=== PATIENT | female | born 1980 | race Caucasian/White ===

== ENCOUNTER → 2020-11-06 16:20 | Outpatient (BNVA) | payer OTHER, SELFPAY | PROVIDERS: Visit Provider Internal Medicine Cardiovascular Disease | DX: R07.2 Precordial pain (principal) | CPT/HCPCS: 87635; 99211 ==

== ENCOUNTER → 2020-11-07 11:06 | Outpatient (BNVA) | payer OTHER, SELFPAY | PROVIDERS: Visit Provider Internal Medicine Cardiovascular Disease | DX: Z20.822 Contact with and (suspected) exposure to COVID-19 (principal) | CPT/HCPCS: 87635 ==

== ENCOUNTER 2020-11-12 07:05 | Day surgery (SDC) | payer OTHER, SELFPAY ==
[2020-11-12] VITALS (14 sets, daily range): BP systolic 105–137; BP diastolic 61–85; PULSE 59–66; RESP 17–18; TEMP 36.8; O2SAT 96–98; BMI 30.5
--- NOTE | 2020-11-12 07:30 | XACV_ITS ---
Ht: 170 cm Wt: 88 kg BSA: 2.07 m2 Gender: Female : 1980 Any Known Allergies: Other Exam Priority: Routine Procedure(s): Procedure Description: Diagnostic procedure Procedure Description: Left Heart Catheterization Procedure Description: Coronary Angiography Diagnostic Cath Status: Elective Diagnostic Findings * No disease noted in the Left Main, Left Anterior Descending, Right, or Circumflex coronary arteries. * Coronary angiography shows right dominance. Conclusions 1. No disease noted in the Left Main, Left Anterior Descending, Right, or Circumflex coronary arteries. 2. All jeter are normal. 3. Normal left ventricular systolic function. Ejection fraction of 65%. Recommendations * Continue current medical management and risk factor modification. LV EDP: 19 mmHg Ventriculography Ejection Fraction: 65.0 % Left Ventriculography Findings: * Normal left ventricular ejection fraction 60%. Pressures Phase:Rest AO : 100 / 70 ( 84 ) @ 8:52:00 AM 152 / 75 ( 67 ) @ 8:53:00 AM 156 / 67 ( 101 ) @ 8:53:00 AM 132 / 82 ( 103 ) @ 8:59:00 AM 132 / 36 ( 74 ) @ 8:59:00 AM LV : 132 / 0 / 19 @ 8:58:00 AM 194 / 57 / 100 @ 8:59:00 AM 130 / -1 / 21 @ 8:59:00 AM 131 / -1 / 20 @ 8:59:00 AM Valves Phase:DefaultPhase AV : 0.0 @ 10:06:33 AM AV Mean Gradient: 0.0 @ 10:06:33 AM Clinical Evaluation EBL: 5mL-10mL Procedural Details Procedure Consent Obtained. Pre-Procedure Time Out. Identified patient by full name and date of as verbalized by the patient/guarantor. Does the consent match the physician's order: Yes. Accurate & Complete Informed Consent: Yes. Inpatient/Outpatient History & Physical on Chart: Yes. If H&P is completed, is and addenduem needed: No; If yes, is the addendum complete: N/A. Visualize and Verify Site with Patient/Guarantor: N/A. Relevant Radiology Images available: N/A. Pre-op teaching completed and patient verbalized understanding. The risks, benefits, and alternatives of sedation and/or procedure were discussed by physician. The patient agrees to continue. Procedure started. 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 Chest Pain Symptom Assessment: Typical Angina Symptoms. Cardiovascular Instability: N/A, if yes, Persistant Ischemic Symptoms. Correct patient, site and procedure confirmed by cath team. Current diagnosis: Stable angina; Abnormal stress test. PERRLA. Strong, equal hand service team leader bilaterally. Lungs clear x 5 lobes. IV Site on Arrival: 20 gauge in the right anticubital. IV Fluids: 0.9% NaCl at KVO. 0 mL infused prior to laborer rags. Pre Procedural Pulses: bilateral radial was 3+. Pre Procedural Pulses: bilateral dorsalis pedis was 3+. Pre Procedural Pulses: bilateral posterior tibial was 3+. Oxygen started at 3liters/min via nasal canula. right groin was prepped with chloroprep then draped in the usual sterile fashion. right radial was prepped with chloroprep then draped in the usual sterile fashion. Baseline sample Acquired. HR: 57 BPM. Physician notified. Physician arrived. Physician scrubbed in. Immediate Pre-Procedure Time Out. Correct Patient: Yes; Correct Procedure: Yes; Correct Site: Yes; Correct Patient Position: Yes; Correct Supplies: Yes; Dried Flammable Prep: Yes; Blood Products Available: N/A;. Lidocaine 1% infiltrated to the right radial. Arterial access obtained. A 5 italian TIG catheter in over wire. Multiple views taken of left coronary artery. Catheter redirected to the RCA. Multiple views taken of right coronary artery. Catheter removed over the exchange wire. A 5 italian Angled Pig catheter in over wire. EDP Sample taken: LV 132/-1,19; HR: 75 BPM; SpO2: 92%. LV gram performed in MULTANI @ 10 mL/second for a total of 30 mL. EDP Sample taken: LV 194/57,100; HR: 81 BPM; SpO2: 89%. EDP Sample taken: LV 130/-2,21; HR: 77 BPM; SpO2: 89%. Pullback taken: LV 131/-2,20; AO 132/82(103); Mean: 0mmHg, Peak to Peak: 0mmHg, SEP: 6sec/min; HR: 76 BPM; SpO2: 91%. Catheter removed over the exchange wire. TR band placed. Hemostasis obtained. Post Procedure: Pulses reassessed and unchanged. PERRLA. Strong, equal hand service team leader bilaterally. No VTE prophylaxis required. A TR Band was successful obtaining hemostatsis at the Right Radial artery insertion site. Medication's Wasted: Lidocaine 1% = 15 mL. Medication's Wasted: Nitro = 49.8 mcg. Medication's Wasted: Heparin = 1000 units. Total IV fluids: 100 mL. Contrast type used: Omnipaque 300 mgI/mL, 500 mL bottle. Estimated blood loss: 5mL-10mL. Procedure completed. Patient transferred by wheelchair to CPRU. Vital chart was stopped. Access Site Site: Right Radial artery Sheath Size: 6 Fr Hemostasis Method: TR Band Hemostasis Success: Successful Procedure Medications Start: 9:27 AM Stop: 9:27 AM Medication: Versed Amount: 1 mg Route: I.V. Start: 9:27 AM Stop: 9:27 AM Medication: Fentanyl Amount: 50 mcg Route: I.V. Start: 9:34 AM Stop: 9:34 AM Medication: Versed Amount: 1 mg Route: I.V. Start: 9:34 AM Stop: 9:34 AM Medication: Fentanyl Amount: 50 mcg Route: I.V. Start: 9:35 AM Stop: 9:35 AM Medication: Versed Amount: 1 mg Route: I.V. Start: 9:38 AM Stop: 9:38 AM Medication: Versed Amount: 1 mg Route: I.V. Start: 9:47 AM Stop: 9:47 AM Medication: Versed Amount: 1 mg Route: I.V. Start: 9:47 AM Stop: 9:47 AM Medication: Fentanyl Amount: 50 mcg Route: I.V. Start: 9:48 AM Stop: 9:48 AM Medication: Nitrogylcerin Amount: 200 mcg Route: I.A. Start: 9:52 AM Stop: 9:52 AM Medication: Heparin Amount: 5000 units Route: I.V. Start: 9:53 AM Stop: 9:53 AM Medication: Versed Amount: 1 mg Route: I.V. Start: 9:53 AM Stop: 9:53 AM Medication: Fentanyl Amount: 50 mcg Route: I.V. I, the attending physician, have reviewed and verified all procedure medications. Yes, all medications given per verbal order History/Risk Factors Hypertension: Yes Dyslipidemia: Yes Peripheral Arterial Disease (PAD): No Myocardial Infarction (WA): No Obesity: No Renal Disease: No Tobacco Use: Current/Recent(w/in 1 year) Prior Interventions PCI: No CABG: No Valve Surgery: No Report Signatures Finalized by Jesus Nicholson MD on 11/25/2020 07:01 PM
[2020-11-12] MEDS: diphenhydrAMINE 50 mg Capsule PO (07:38)
[2020-11-12 08:43] LABS: Basophils % 0.3 %; Eosinophils # 0.1 10^3/uL (0.0-0.8); Eosinophils % 0.9 %; Hematocrit 41.7 % (37.0-47.0); Hemoglobin 14.3 g/dL (11.5-15.3); Lymphocytes % 35.4 %; Mean Corpuscular HGB Conc 34.3 g/dL (30.0-36.0); Mean Corpuscular Hemoglobin 33.3 pg (28.0-34.0); Mean Corpuscular Volume 97.2 fL (81-99); Mean Platelet Volume 9.1 fL (7.4-10.4); Monocytes # 0.6 10^3/uL (0.2-0.9); Monocytes % 7.3 %; Neutrophils # 4.79 10^3/uL (1.8-7.7); Neutrophils % 55.9 %; Nucleated Red Blood Cells % 0 %; Platelet Count 308 10^3/cmm (130-400); Red Blood Count 4.29 10^6/uL (4.1-5.3); White Blood Count 8.6 10^3/uL (4.0-10.0)
--- NOTE | 2020-11-12 08:50 | P.HP_ITS ---
Same Day Surgery H&P Indication for Procedure/HPI DATE OF PROCEDURE: November 12, 2020 CHIEF COMPLAINT/INDICATIONFOR SURGICAL PROCEDURE: Chest pain abnormal stress test PREOP DIAGNOSIS: Chest pain abnormal stress test PLANNED PROCEDRUE: Operation Date: 11/12/20 08:30 Proposed Procedures p Left Cardiac Catheterization 68222 R94.39(Left) - Jesus Nicholson MD This 40-year-old female past medical history significant for hypertension hyperlipidemia h/o tobacco abuse strong family history of heart problem father had heart attack at the age of 39 for worsening of shortness of breath and chest pain off and on basis underwent stress test at [facility] which showed inferior ST depressions on the treadmill suggestive of ischemia however patient had normal nuclear stress test. Since patient continues to have chest pressure with worsening of shortness of breath she has been advised to proceed with left heart cath. Patient has been explained all risk benefit and alternative for the procedure by myself. She understand the risk of stroke major minor bleed urgent emergent bypass hematoma infection and pseudoaneurysm. She would like to proceed with it. Medications/Allergies* Allergies/Adverse Reactions Allergy/AdvReac Type Severity Reaction Status Date / Time quetiapine [From Seroquel] Allergy Unknown Unknown Verified 10/09/20 08:09 tramadol Allergy Unknown Unknown Verified 10/09/20 08:09 trazodone Allergy Unknown Unknown Verified 10/09/20 08:09 Current Medications: Generic Name Dose Route Start Last Admin Trade Name Freq PRN Reason Stop Dose Admin Sodium Chloride 1,000 mls @ 50 mls/hr 11/12/20 07:30 11/12/20 07:39 Sodium Chloride 0.9% IV 11/13/20 03:29 Not Given .Q20H ONE Pertinent History/Comorbid Conditions* Family History (Updated 10/09/20 @ 12:41 by Makayla Lion LPN) Father, 39 y/o Myocardial infarct Father Grandmother Grandfather Stroke Grandmother Social History Smoking and tobacco status: former smoker Pertinent Exam Findings alert, oriented x 3 and clear to auscultation bilaterally Related Problem List Diagnoses (1) Abnormal stress test: Additional Information: We will proceed with left heart cath. (2) Chest pain: Additional Information: Cannot rule out cardiac in a patient with history of smoking and premature coronary artery disease in the family with abnormal EKG portion of the stress test. Since patient continues to have chest pain we will proceed with left heart cath. 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
[2020-11-12 08:55] LABS: Partial Thromboplastin Time 26.8 SECONDS (23.9-36.7)
[2020-11-12 09:04] LABS: Anion Gap 13.8 (5-19); Blood Urea Nitrogen 8 mg/dL (6-20); Calcium 8.9 mg/dL (8.5-10.5); Carbon Dioxide 25 mmol/L (22-29); Chloride 104 mmol/L (98-107); Glomerular Filtration Rate 92.2 mL/min (90-130); Glucose 103 mg/dL (65-115); Osmolality Calculated 287 mOsm/kg (285-295); Potassium 3.8 mmol/L (3.5-5.1); Sodium 139 mmol/L (136-145)
== END 2020-11-12 13:00 | disposition home or self-care (01) ==
PROVIDERS: Visit Provider Internal Medicine Cardiovascular Disease
DX: R94.39 Abnormal result of other cardiovascular function study (principal); R07.2 Precordial pain; I10 Essential (primary) hypertension; E78.5 Hyperlipidemia, unspecified; Z82.49 Family history of ischemic heart disease and other diseases of the circulatory system; Z87.891 Personal history of nicotine dependence
CPT/HCPCS: 36415; 80048; 85025; 85730; 93452; C1769; C1887; C1894; J1644; J2250; J3010; J3490; J7030; Q0163; Q9967